=== PATIENT | female | born 1935 | race Caucasian/White ===

== ENCOUNTER 2024-05-14 18:00 | Emergency (ER) | payer MEDICARE ==
[2024-05-14] MEDS ORDERED: Lidocaine 4% Patch ONE (18:55)
[2024-05-14] MEDS ORDERED: Amlodipine 5 MG TAB ONE (18:55)
[2024-05-14] MEDS ORDERED: Methocarbamol 500 MG TAB ONE (20:19)
[2024-05-14] MEDS ORDERED: Gabapentin 100 MG CAP ONE (20:19)
== END 2024-05-14 21:50 | disposition home or self-care (01) ==
LOC: MADERS 18:00
DX: I10 Essential (primary) hypertension (principal); G25.81 Restless legs syndrome; E05.90 Thyrotoxicosis, unspecified without thyrotoxic crisis or storm; K21.9 Gastro-esophageal reflux disease without esophagitis; Z79.890 Hormone replacement therapy; Z87.891 Personal history of nicotine dependence; Z79.899 Other long term (current) drug therapy
CPT/HCPCS: 99283

== ENCOUNTER 2024-06-12 21:29 | Emergency (ER) | payer MEDICARE ==
[2024-06-12] MEDS ORDERED: Ipratropium/Albuterol 3 ML NEB ONE ×2 (21:59→23:08)
[2024-06-12] MEDS ORDERED: methylPREDNISolone Sod Succ/PF 125 MG/2 ML VIAL ONE (22:00)
[2024-06-12 22:16] LABS: #Basophils 0.1 thou/uL (0.0-0.2); #Eosinophils 0.5 thou/uL (0.0-0.7); #Lymphocytes 1.9 thou/uL (1.20-3.40); #Monocytes 0.8 thou/uL (0.11-0.59); #Neutrophils 5.8 thou/uL (1.40-6.50); %Basophils 1.5 % (0.0-1.0); %Eosinophils 5.9 % (0.0-10.0); %Lymphocytes 20.7 % (21.0-51.0); %Neutrophils 62.9 % (42.0-75.0); Hematocrit 34.8 % (36.0-47.0); Mean Corpuscular HGB CONC 31.6 g/dL (32.0-36.0); Mean Corpuscular Hemoglobin 28.6 pg (27.0-31.0); Mean Corpuscular Volume 90.6 fl (78.0-98.0); Mean Platelet Volume 6.5 fL (7.4-10.4); Platelet Count 418 10x3/uL (130-400); RBC Distribution Width 14.2 % (11.5-14.5); Red Blood Cell (RBC) Count 3.84 mill/uL (4.20-5.40); White Blood Cell (WBC) Count 9.3 10x3/uL (4.8-10.8)
[2024-06-12 22:30] LABS: ALT (SGPT) 12 U/L (8-55); AST (SGOT) 19 U/L (5-34); Albumin 3.9 g/dL (3.4-4.8); Alkaline Phosphatase 69 U/L (40-110); Anion Gap 15 mmol/L (10-20); BUN (Urea Nitrogen) 39 mg/dL (9.8-20.1); Bilirubin, Total 0.3 mg/dL (0.2-1.2); Calc. Creatinine Clearance 0 mL/min (70-130); Carbon Dioxide 21 mmol/L (23-31); Chloride 109 mmol/L (98-107); Estimated GFR 36; Globulin 2.4 g/dL (2.4-3.5); Glucose 121 mg/dL (83-110); Potassium 4.6 mmol/L (3.5-5.1); Protein, Total 6.3 g/dL (5.8-8.1); Sodium 140 mmol/L (136-145); Troponin I Less than 0.010 ng/mL (< 0.028)
[2024-06-12] MEDS ORDERED: cefTRIAXone (ROCEPHIN) 1 GM VIAL ONE (23:50)
[2024-06-12] MEDS ORDERED: Sodium Chloride 0.9% 100 ML ONE (23:50)
== END 2024-06-13 01:36 | disposition short-term general hospital (02) ==
LOC: MADERS 21:29
DX: J44.1 Chronic obstructive pulmonary disease with (acute) exacerbation (principal); I10 Essential (primary) hypertension; K21.9 Gastro-esophageal reflux disease without esophagitis; Z87.891 Personal history of nicotine dependence; Z79.899 Other long term (current) drug therapy
CPT/HCPCS: 71045; 71250; 80053; 83880; 84484; 85025; 93005; 96365; 96375; J0696; J2919; J7620

== ENCOUNTER 2024-06-24 06:48 | Emergency (ER) | payer MEDICARE ==
[2024-06-24] MEDS ORDERED: Ipratropium/Albuterol 3 ML NEB ONE (07:24)
[2024-06-24] MEDS ORDERED: methylPREDNISolone Sod Succ/PF 125 MG/2 ML VIAL ONE (07:24)
[2024-06-24 07:27] LABS: #Basophils 0.2 thou/uL (0.0-0.2); #Eosinophils 0.6 thou/uL (0.0-0.7); #Lymphocytes 2.2 thou/uL (1.20-3.40); #Neutrophils 10.1 thou/uL (1.40-6.50); %Basophils 1.3 % (0.0-1.0); %Eosinophils 4.4 % (0.0-10.0); %Lymphocytes 15.7 % (21.0-51.0); %Monocytes 7.1 % (0.0-10.0); %Neutrophils 71.5 % (42.0-75.0); Hematocrit 34.2 % (36.0-47.0); Hemoglobin 10.7 g/dL (12.0-16.0); Mean Corpuscular HGB CONC 31.3 g/dL (32.0-36.0); Mean Corpuscular Hemoglobin 28.4 pg (27.0-31.0); Mean Corpuscular Volume 90.8 fl (78.0-98.0); Mean Platelet Volume 6.8 fL (7.4-10.4); Platelet Count 351 10x3/uL (130-400); RBC Distribution Width 13.8 % (11.5-14.5); Red Blood Cell (RBC) Count 3.76 mill/uL (4.20-5.40); White Blood Cell (WBC) Count 14.1 10x3/uL (4.8-10.8)
[2024-06-24] MEDS ORDERED: Sodium Chloride 0.9% 250 ML 500 ML ONE (07:38)
[2024-06-24] MEDS ORDERED: Vancomycin 1 GM VIAL ONE (07:38)
[2024-06-24 07:40] LABS: ALT (SGPT) 16 U/L (8-55); AST (SGOT) 21 U/L (5-34); Albumin 3.6 g/dL (3.4-4.8); Alkaline Phosphatase 78 U/L (40-110); Anion Gap 13 mmol/L (10-20); BUN (Urea Nitrogen) 32 mg/dL (9.8-20.1); Bilirubin, Total 0.6 mg/dL (0.2-1.2); Calc. Creatinine Clearance 0 mL/min (70-130); Calcium 8.6 mg/dL (7.8-10.44); Carbon Dioxide 25 mmol/L (23-31); Chloride 103 mmol/L (98-107); Estimated GFR 52; Globulin 2.7 g/dL (2.4-3.5); Glucose 108 mg/dL (83-110); Magnesium 2.2 mg/dL (1.6-2.6); Potassium 4.1 mmol/L (3.5-5.1); Protein, Total 6.3 g/dL (5.8-8.1); Sodium 137 mmol/L (136-145)
[2024-06-24 07:42] LABS: Troponin I 0.012 ng/mL (< 0.028)
[2024-06-24 07:43] LABS: Base Excess-Venous 2.8 mmol/L (-2.0 to 3.0); CO2 Tension (PvCO2) 46.1 mmHg (42.0-51.0); vO2 Saturation-calc 99.7 % (60.0-85.0)
[2024-06-24 07:44] LABS: Calcium, Ionized 1.18 mmol/L (1.15-1.33); Chloride 101 mmol/L (98-107); Hemoglobin - Calc 12.4 g/dL (12.0-16.0); Potassium 4.1 mmol/L (3.5-5.1); Sodium 139 mmol/L (138-145); T. Carbon Dioxide 29.7 mmol/L (22.0-28.0)
[2024-06-24 07:45] LABS: Bicarbonate (HCO3v) 28.3 mmol/L (22.0-28.0)
[2024-06-24] MEDS ORDERED: Furosemide 40 MG (4 mL) VIAL ONE (07:53)
[2024-06-24] MEDS ORDERED: Cefepime 2 GM VIAL ONE (08:06)
== END 2024-06-24 09:40 | disposition short-term general hospital (02) ==
LOC: MADERS 06:48
DX: J44.1 Chronic obstructive pulmonary disease with (acute) exacerbation (principal); I10 Essential (primary) hypertension; Z87.891 Personal history of nicotine dependence
CPT/HCPCS: 71045; 80053; 82330; 82435; 82803; 83605; 83735; 83880; 84132; 84295; 84484; 85014; 85025; 87040; 87428; 93005; 94760; 96365; 96366; 96368; 96375; 99285; J0692; J1940; J2919; J3370; J7050; J7620

== ENCOUNTER 2025-02-10 13:31 | Outpatient (CLI) | payer MEDICARE ==
[2025-02-10 14:02] LABS: Anion Gap 15 mmol/L (10-20); BUN (Urea Nitrogen) 15 mg/dL (9.8-20.1); Calc. Creatinine Clearance 0 mL/min (70-130); Calcium 8.8 mg/dL (7.8-10.44); Carbon Dioxide 21 mmol/L (23-31); Chloride 105 mmol/L (98-107); Glucose 92 mg/dL (83-110); Potassium 4.4 mmol/L (3.5-5.1); Sodium 137 mmol/L (136-145)
== END 2025-02-10 13:32 | disposition home or self-care (01) ==
LOC: MADLAB 13:31
PROVIDERS: ATTEND Internal Medicine Nephrology
DX: N18.9 Chronic kidney disease, unspecified (principal); N17.9 Acute kidney failure, unspecified
CPT/HCPCS: 36415; 80048

== ENCOUNTER 2025-05-09 14:43 | Outpatient (CLI) | payer MEDICARE ==
[2025-05-09 15:04] LABS: Glucose, Urine (Dipstick) 500 mg/dL (Negative); Leukocyte Negative (Negative); Protein, Urine (Dipstick) 100 mg/dL (Neg-Trace); Specific Gravity, Urine Less/Equal 1.005 (1.005-1.030)
[2025-05-09 15:13] LABS: Albumin 4.4 g/dL (3.1-4.5); Anion Gap 17 mmol/L (10-20); BUN (Urea Nitrogen) 18 mg/dL (9.8-20.1); BUN/Creatinine Ratio 17.65; Calc. Creatinine Clearance 0 mL/min (70-130); Calcium 9.4 mg/dL (7.8-10.44); Carbon Dioxide 23 mmol/L (23-31); Chloride 103 mmol/L (98-107); Glucose 87 mg/dL (83-110); Potassium 4.5 mmol/L (3.5-5.1); Sodium 138 mmol/L (136-145)
[2025-05-09 15:38] LABS: Bacteria/HPF Rare-Few HPF (None Seen); RBC/HPF 0-3 HPF (0-3); WBC/HPF 0-3 HPF (0-3); Yeast-Budding Rare HPF (None Seen)
[2025-05-09 22:48] LABS: #Basophils 0.11 10x3/uL (0.0-0.2); #Eosinophils 0.33 10x3/uL (0.0-0.7); #Monocytes 0.76 10x3/uL (0.11-0.59); #Neutrophils 5.51 10x3/uL (1.40-6.50); %Basophils 1.1 % (0.0-1.0); %Eosinophils 3.3 % (0.0-10.0); %Lymphocytes 33.3 % (21.0-51.0); %Monocytes 7.5 % (0.0-10.0); %Neutrophils 54.5 % (42.0-75.0); Hematocrit 41.2 % (36.0-47.0); Hemoglobin 13.1 g/dL (12.0-16.0); Mean Corpuscular Hemoglobin 26.7 pg (27.0-31.0); Mean Corpuscular Volume 83.9 fL (78.0-98.0); Platelet Count 325 10x3/uL (130-400); Red Blood Cell (RBC) Count 4.91 mill/uL (4.20-5.40); White Blood Cell (WBC) Count 10.10 10x3/uL (4.8-10.8)
[2025-05-09 22:59] LABS: Iron 67 ug/dL (50-170); Iron Binding Capacity, Total 440 mcg/dL (265-497)
== END 2025-05-09 14:44 | disposition home or self-care (01) ==
LOC: MADLAB 14:43
PROVIDERS: ATTEND Internal Medicine Nephrology
DX: I12.9 Hypertensive chronic kidney disease with stage 1 through stage 4 chronic kidney disease, or unspecified chronic kidney disease (principal); N18.9 Chronic kidney disease, unspecified; D63.1 Anemia in chronic kidney disease
CPT/HCPCS: 36415; 80069; 81001; 82043; 82728; 83540; 83550; 85025

== ENCOUNTER 2025-06-02 14:16 | Outpatient (CLI) | payer MEDICARE ==
[2025-06-02 14:59] LABS: Anion Gap 16 mmol/L (10-20); BUN (Urea Nitrogen) 22 mg/dL (9.8-20.1); Calc. Creatinine Clearance 0 mL/min (70-130); Calcium 9.2 mg/dL (7.8-10.44); Carbon Dioxide 22 mmol/L (23-31); Chloride 105 mmol/L (98-107); Glucose 100 mg/dL (83-110); Potassium 4.1 mmol/L (3.5-5.1); Sodium 139 mmol/L (136-145)
== END 2025-06-02 14:17 | disposition home or self-care (01) ==
LOC: MADLAB 14:16
PROVIDERS: ATTEND Internal Medicine Nephrology
DX: N17.9 Acute kidney failure, unspecified (principal)
CPT/HCPCS: 36415; 80048